=== PATIENT | male | born 1960 | race Caucasian/White ===

== ENCOUNTER → 2018-06-13 02:15 | Outpatient (CLI) | payer OTHER, SELFPAY ==
--- NOTE | 2018-06-13 14:00 | MERGE_ITS ---
*[facility]* *[facility]* [address] [place] [address] Date of study: 06/13/2018 Transthoracic Echocardiography M-mode, complete 2D, complete spectral Doppler, and color Doppler *STUDY CONCLUSIONS* Summary: 1. Left ventricle: The cavity size was normal. Wall thickness was increased in a pattern of mild LVH. Systolic function was at the lower limits of normal. The estimated ejection fraction was 50-55%. Wall motion was normal; there were no regional wall motion abnormalities. 2. Right ventricle: The cavity size was dilated. Systolic function was normal. 3. Left atrium: The atrium was mildly dilated. 4. Mitral valve: There was mild regurgitation. 5. Aortic valve: Trileaflet; mildly thickened leaflets. Valve mobility was mildly restricted. Transvalvular velocity was increased. There was mild stenosis. There was moderate to severe regurgitation. Peak velocity (S): 2.5m/sec. VTI ratio of LVOT to aortic valve: 0.61. 6. Aortic root: The aortic root was moderately dilated (45 mm). 7. Ascending aorta: The ascending aorta was mildly dilated (41 mm). 8. Pulmonic valve: Transvalvular velocity was increased. The findings are consistent with mild stenosis (likely subpulmonic stenosis). Mean gradient 13 mmHg. 9. Inferior vena cava: The vessel was patent and normal in size. The respirophasic diameter changes were in the normal range (greater than or equal to 50%), consistent with normal central venous pressure. *PATIENT PRESENTATION* Height: 175.3cm ((69in) ) S/D Pressure: 127 / 76 Weight: 91.6kg ((201.6lb) ) BSA: 2.14m^2 Test start time: 02:10 PM. Test stop time: 02:30 PM. 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 This study was interpreted by [facility]. Pertinent images and digital data are archived for permanent storage and are available for subsequent review. Comparison was made to the study of 05/11/2014. Study status: Routine. Transthoracic echocardiography. M-mode, complete 2D, complete spectral Doppler, and color Doppler. A Transthoracic Echocardiogram was performed. Scanning was performed from the parasternal, apical, subcostal, and suprasternal notch acoustic windows. Images were obtained using an [id number] cardiac ultrasound machine. Image quality was adequate. Study completion: The patient tolerated the procedure well. There were no complications. History: PMH: Congenital heart disease. h/o VSD with some increasing chest pressure. *CARDIAC ANATOMY* Left ventricle: The cavity size was normal. Wall thickness was increased in a pattern of mild LVH. Systolic function was at the lower limits of normal. The estimated ejection fraction was 50-55%. Wall motion was normal; there were no regional wall motion abnormalities. Findings consistent with diastolic dysfunction. There was no evidence of elevated ventricular filling pressure by Doppler parameters. Aortic valve: Trileaflet; mildly thickened leaflets. Valve mobility was mildly restricted. Doppler: Transvalvular velocity was increased. There was mild stenosis. There was moderate to severe regurgitation. VTI ratio of LVOT to aortic valve: 0.61. Valve area (VTI): 3cm^2. Indexed valve area (VTI): 1.4cm^2/m^2. Peak velocity ratio of LVOT to aortic valve: 0.52. Valve area (Vmax): 2.6cm^2. Indexed valve area (Vmax): 1.2cm^2/m^2. Mean velocity ratio of LVOT to aortic valve: 0.57. Valve area (Vmean): 2.9cm^2. Indexed valve area (Vmean): 1.3cm^2/m^2. Mean gradient (S): 10.4mm Hg. Peak gradient (S): 25mm Hg. Aorta: Aortic root: The aortic root was moderately dilated (45 mm). Ascending aorta: The ascending aorta was mildly dilated (41 mm). Mitral valve: Structurally normal valve. Mobility was not restricted. Doppler: Transvalvular velocity was within the normal range. There was no evidence for stenosis. There was mild regurgitation. Valve area by pressure half-time: 4.6cm^2. Indexed valve area by pressure half-time: 2.1cm^2/m^2. Peak gradient (D): 3.6mm Hg. Left atrium: The atrium was mildly dilated. Right ventricle: The cavity size was dilated. Systolic function was normal. Pulmonic valve: The pulmonary valve appears to be grossly normal. Doppler: Transvalvular velocity was increased. The findings are consistent with mild stenosis (likely subpulmonic stenosis). Mean gradient 13 mmHg. There was mild regurgitation. Peak gradient (S): 19.2mm Hg. Tricuspid valve: Structurally normal valve. Doppler: Transvalvular velocity was within the normal range. There was no evidence for stenosis. There was mild regurgitation. Pulmonary artery: The main pulmonary artery was normal-sized. Pulmonary systolic pressure was in the range of 30mm Hg to 35mm Hg. Right atrium: The atrium was dilated. Pericardium: There was no significant pericardial effusion. Systemic veins: Inferior vena cava: Well visualized. The vessel was patent and normal in size. The respirophasic diameter changes were in the normal range (greater than or equal to 50%), consistent with normal central venous pressure. Baseline ECG: Bradycardia. Measurements Left ventricle Value Reference LV ID, ED, PLAX 5.1 cm 3.5 - 6.0 LV ID, ES, PLAX 3.6 cm 2.1 - 4.0 LV PW thickness, ED, PLAX 1.3 cm LV end-diastolic volume, 1-p A2C 98 ml LV ejection fraction, 1-p A2C 52 % LV end-diastolic volume, 1-p A4C 133 ml LV ejection fraction, 1-p A4C 47 % LV e', lateral 0.106 m/sec LV E/e', lateral 9 LV e', medial 0.055 m/sec LV E/e', medial 17 LV e', average 0.081 m/sec LV E/e', average 12 Ventricular septum Value Reference IVS thickness, ED, PLAX 1.2 cm LVOT Value Reference LVOT ID, A-P 2.5 cm LVOT area 5 cm^2 LVOT peak velocity, S 1.31 m/sec LVOT mean velocity, S 0.83 m/sec LVOT VTI, S 31.4 cm LVOT peak gradient, S 6.9 mm Hg LVOT mean gradient, S 3.4 mm Hg Stroke volume (SV), LVOT DP 157 ml Stroke index (SV/bsa), LVOT DP 73 ml/m^2 Aortic valve Value Reference Aortic valve peak velocity, S 2.5 m/sec Aortic valve mean velocity, S 1.46 m/sec Aortic valve VTI, S 51.4 cm Aortic mean gradient, S 10.4 mm Hg Aortic peak gradient, S 25 mm Hg VTI ratio, LVOT/AV 0.61 Aortic valve area, VTI 3 cm^2 Velocity ratio, peak, LVOT/AV 0.52 Aortic valve area, peak velocity 2.6 cm^2 Velocity ratio, mean, LVOT/AV 0.57 Aortic valve area, mean velocity 2.9 cm^2 Aortic valve area/bsa, mean velocity 1.3 cm^2/m^2 Aortic regurg deceleration 255 cm/s^2 Aortic regurg pressure half-time 514 ms Aorta Value Reference Ascending aorta ID, A-P, S 4.1 cm RVOT Value Reference RVOT VTI, S 41.8 cm Left atrium Value Reference LA ID, A-P, ES 5.0 cm LA ID/bsa, A-P (H) 2.3 cm/m^2 <=2.2 LA area, ES, A4C 22.7 cm^2 8.8 - 23.4 LA area, ES, A2C 20 cm^2 LA volume/bsa, ES, 1-p A4C 37 ml/m^2 LA volume, ES, 2-p 65 ml LA volume/bsa, ES, 2-p 31 ml/m^2 Mitral valve Value Reference Mitral E-wave peak velocity 0.95 m/sec Mitral A-wave peak velocity 0.81 m/sec Mitral deceleration time 166 ms 150 - 230 Mitral pressure half-time 48 ms Mitral peak gradient, D 3.6 mm Hg Mitral E/A ratio, peak 1.18 Mitral valve area, PHT, DP 4.6 cm^2 Pulmonary veins Value Reference Pulmonary vein peak velocity, S 0.4 m/sec Pulmonary vein peak velocity, D 0.47 m/sec Pulmonary vein velocity ratio, peak, 0.86 S/D Pulmonary vein A-wave reversal peak 0.29 m/sec velocity Tricuspid valve Value Reference Tricuspid regurg peak velocity 2.8 m/sec Tricuspid peak RV-RA gradient 30.3 mm Hg Right atrium Value Reference RA area, ES, A4C (H) 20.5 cm^2 8.3 - 19.5 Pulmonic valve Value Reference Pulmonic peak gradient, S 19.2 mm Hg Legend: (L) and (H) mary beth values outside specified reference range. I have personally reviewed the images and have reviewed and edited the reported findings. Electronically signed by Stephen Pacheco 06/16/2018 09:46
== END ==
PROVIDERS: PCP Family Medicine; Visit Provider Family Medicine
DX: R07.89 Other chest pain (principal); I08.0 Rheumatic disorders of both mitral and aortic valves; I51.7 Cardiomegaly; Q24.9 Congenital malformation of heart, unspecified
CPT/HCPCS: 93306

== ENCOUNTER 2019-12-29 15:21 | Outpatient (REF) | payer BC, SELFPAY ==
[2019-12-29 19:55] LABS: CREATININE 1.17 mg/dL (0.70-1.30); Calculated LDL 135 mg/dL (<100); Cholesterol 200 mg/dL (<200); HDL Cholesterol 31 mg/dL (40-60); TSH (W/Ref FT4) 6.96 uIU/mL (0.36-3.74); Triglyceride 171 mg/dL (<150)
[2019-12-29 20:15] LABS: Hemoglobin A1C 5.5 % (3.8-5.6)
[2019-12-29 20:36] LABS: FREE T4 0.91 ng/dL (0.76-1.46)
== END 2019-12-29 15:41 ==
LOC: NCHCN 15:21
PROVIDERS: PCP Family Medicine; Visit Provider Family Medicine
DX: E03.9 Hypothyroidism, unspecified (principal); Z00.00 Encounter for general adult medical examination without abnormal findings; R39.89 Other symptoms and signs involving the genitourinary system; Q24.9 Congenital malformation of heart, unspecified
CPT/HCPCS: 80061; 82565; 83036; 84439; 84443

== ENCOUNTER 2020-04-07 01:53 | Outpatient (CLI) | payer BC, SELFPAY ==
--- NOTE | 2020-04-07 12:35 | DI.US_ITS ---
APPROVED REPORT EXAM: Comprehensive 2D, Doppler, and color-flow Echocardiogram Patient Location: Out-Patient Configuration Manager: Loreta Macias RDCS (AE) Other Information Study Quality: Good Conclusion Left Ventricle : The left ventricle is normal size. The left ventricular systolic function is normal. The left ventricular ejection fraction is within the normal range. There is normal left ventricular wall thickness. There is normal LV segmental wall motion. Function is indeterminate. LVEF is 50%. No ventricular septal defect. Mild septal thickening status post ventricular septal defect repair. Right Ventricle : The right ventricle is normal size. The right ventricular systolic function is norm al. The RVSP is 22.5 mmHg. Atria : The left atrium size is normal. The right atrium size is normal. Aortic Valve : Aortic valve is trileaflet. There is no aortic valvular stenosis. Moderate to severe a ortic regurgitation Mitral Valve : The mitral valve is normal in structure. No evidence of mitral valve stenosis. Mild mi tral regurgitation. Tricuspid Valve : The tricuspid valve is normal in structure. There is no tricuspid valve stenosis. M ild tricuspid regurgitation. Pulmonic Valve : The pulmonic valve is grossly normal in structure and function. Trace to mild pulmon ic regurgitation. Mild pulmonic stenosis (Mean gradient 14mmHg). Great Vessels : Aortic root is moderately dilated. The ascending aorta is moderately dilated (4cm) Ao rtic arch is normal in caliber. IVC is normal in size and collapses >50% with inspiration. Compared to echocardiogram from 06/13/2018: There is no significant change. Wall motion Left Ventricle The left ventricle is normal size. The left ventricular systolic function is normal. The left ventric ular ejection fraction is within the normal range. There is normal left ventricular wall thickness. T here is normal LV segmental wall motion. Function is indeterminate. No ventricular septal defect. Mil d septal thickening status post ventricular septal defect repair. LVEF is 50%. Right Ventricle The right ventricle is normal size. The right ventricular systolic function is normal. The RVSP is 22 .5 mmHg. Atria The left atrium size is normal. The right atrium size is normal. The interatrial septum is intact wit h no evidence for an atrial septal defect. Aortic Valve Aortic valve is trileaflet. There is no aortic valvular stenosis. Moderate to severe aortic regurgita tion Mitral Valve The mitral valve is normal in structure. No evidence of mitral valve stenosis. Mild mitral regurgitat ion. Tricuspid Valve The tricuspid valve is normal in structure. There is no tricuspid valve stenosis. Mild tricuspid regu rgitation. Pulmonic Valve The pulmonic valve is grossly normal in structure and function. Mild pulmonic stenosis (Mean gradient 14mmHg). Trace to mild pulmonic regurgitation. Great Vessels Aortic root is moderately dilated. The ascending aorta is moderately dilated (4cm) Aortic arch is nor mal in caliber. IVC is normal in size and collapses >50% with inspiration. Pericardium There is no pericardial effusion. There is no pleural effusion. 2D Dimensions IVSD d PLAX 1.05 cm M: 0.6-1.2 LV Vol A2C d MOD 106.3 mL LVPW d PLAX 1.03 cm M: 0.6 - 1.2 LV Vol A4C d MOD 105.5 mL LVID d PLAX 5.27 cm M: 4.2 - 5.8 LA vol/ BSA A2C s A-L 16.0 mL/m2 LVDs 3.60 cm M: 2.5 - 4.0 LA vol/ BSA A4C s A-L 15.4 mL/m2 Ao Root d 4.10 cm M: 3.1 - 3.7 LA Vol/ BSA Biplane s A-L 16.5 mL/m2 RA Area A4C 19.76 cm2 LA Area A4C s MOD 13.87 cm2 RA Vol/ BSA A4C s A-L 30.6 mL/m2 LA Area A2C s MOD 13.41 cm2 Ao Asc Diam d 4.03 cm M: 2.6 - 3.4 LV EF A4C MOD 50.2 % LV EF Teichholz 59.3 % LV EF A2C MOD 51.6 % LVEF (Rincon's) 48.92 % M: 52 - 72 LV EF Biplane MOD 48.9 % LV Volume 78.54 mL M: 62 - 150 SV 52.12 mL LV Volume Index 50.01 mL/m2 M: 34 - 74 SV Index 24.72 mL/m2 LV Vol Biplane MOD 106.6 mL FS 31.65 % M-Mode TAPSE 1.83 cm (M/F) >1.7 LV Diastology MV E' medial 0.046 (>0.07 m/s) E/A Ratio 1.3 LV E/e MED 19.35 (<14) MV E Vmax 0.88 (0.4-1.3 m/s) MV E' lateral 0.081 (>0.1 m/s) MV A Vmax 0.70 (0.4-1.3 m/s) LV E/e LAT 10.95 (<14) MV E/A Ratio 1.19 MV E/E' medial 19.39 MV E/E' lateral 10.97 Aortic Valve LVOT Vmax 1.31 m/s AR DT 3066 msec LVOT Mean Anson. 0.80 m/s AR PHT 889 msec LVOT Peak Grad 6.9 mmHg LVOT Mean Grad 3.2 mmHg LVOT VTI 0.294 m AoV Vmax 2.21 m/s Velocity Ratio 0.59 AoV Mean Anson. 1.41 m/s AoV Peak Grad 19.5 mmHg AoV Mean Grad 9.3 mmHg AoV VTI 0.443 m Vena Contraca 0.80 cm Mitral Valve MV DT 218 (160-240 msec) MV PHT 63 msec MV Area PHT 3.49 cm2 Pulmonary Valve PV Vmax 2.37 (0.5-1.5 m/s) RVOT Peak Gr. 3.11 mmHg PV Peak Grad 22.5 mmHg RVOT Mean Gr. 1.90 mmHg PV Mean Grad 14.3 mmHg RVOT Diam s 2.65 cm (M/F) 2.1-3.5 PV VTI 0.579 m RVOT VTI 0.232 m PV SV 320.0 mL RVOT Vmax 0.88 m/s Tricuspid Valve TR Peak Grad 19.5 mmHg TR Vmax 2.21 m/s RA Pressure 3.00 mmHg RVSP (TR) 22.5 mmHg
== END 2020-04-07 02:13 ==
PROVIDERS: PCP Family Medicine; Visit Provider Family Medicine
DX: I35.1 Nonrheumatic aortic (valve) insufficiency (principal); I37.0 Nonrheumatic pulmonary valve stenosis; I77.819 Aortic ectasia, unspecified site
CPT/HCPCS: 93306

== ENCOUNTER 2021-01-02 18:32 | Outpatient (REF) | payer BC, SELFPAY ==
[2021-01-02 18:56] LABS: Calculated LDL 93 mg/dL (<100); Cholesterol 164 mg/dL (<200); HDL Cholesterol 43 mg/dL (40-60); TSH (W/Ref FT4) 6.62 uIU/mL (0.36-3.74); Triglyceride 143 mg/dL (<150)
[2021-01-02 19:31] LABS: FREE T4 0.78 ng/dL (0.76-1.46)
== END 2021-01-02 18:33 | disposition home or self-care (01) ==
LOC: NCHCN 18:32
PROVIDERS: PCP Family Medicine; Visit Provider Family Medicine
DX: Z00.00 Encounter for general adult medical examination without abnormal findings (principal); E03.9 Hypothyroidism, unspecified; E78.5 Hyperlipidemia, unspecified
CPT/HCPCS: 80061; 84439; 84443

== ENCOUNTER 2021-04-04 01:25 | Outpatient (CLI) | payer BC, SELFPAY ==
--- NOTE | 2021-04-04 13:59 | DI.US_ITS ---
APPROVED REPORT EXAM: Comprehensive 2D, Doppler, and color-flow Echocardiogram Indications: Aortic valve disease, Aortic regurgitation Other Information Study Quality: Adequate Conclusion Normal left ventricular wall thickness and chamber size. Estimated ejection fraction is 55 to 60%. There are no segmental wall motion abnormalities Normal right ventricular size and systolic function Both atria are normal in size The aortic valve is sclerotic and trileaflet. There is no aortic stenosis. There is moderate aortic regurgitation The mitral leaflets are mildly thickened. There is mild mitral annular calcification. There is mild mitral regurgitation Normal tricuspid valve with mild regurgitation. Estimated right ventricular systolic pressure is 24 mmHg Normal pulmonic valve with trace regurgitation Mildly dilated ascending aorta and aortic root, 4.1 cm Wall motion Left Ventricle The left ventricle is normal size. The left ventricular systolic function is normal. The left ventric ular ejection fraction is within the normal range. There is normal left ventricular wall thickness. T here is normal LV segmental wall motion. There is no ventricular septal defect visualized. LVEF is 58 %. Right Ventricle The right ventricle is normal size. The right ventricular systolic function is normal. The RVSP is 23 .8mmHg. Atria The left atrium size is normal. The right atrium size is normal. The interatrial septum is intact wit h no evidence for an atrial septal defect. Aortic Valve The Aortic valve is sclerotic. Aortic valve is trileaflet. No hemodynamically significant valvular ao rtic stenosis. Moderate aortic regurgitation. Mitral Valve Mitral valve leaflets are mildly thickened. Mild mitral annular calcification. No evidence of mitral valve stenosis. Mild mitral regurgitation. Tricuspid Valve The tricuspid valve is normal in structure. There is no tricuspid valve stenosis. Mild tricuspid regu rgitation. Pulmonic Valve The pulmonary valve is normal in structure. There is no pulmonic valvular stenosis. Trace pulmonic re gurgitation. Great Vessels Aortic root is moderately dilated.4.11 cm The ascending aorta is moderately dilated.4.1 cm Aortic arc h is normal in caliber. IVC is normal in size and collapses >50% with inspiration. Pericardium There is no pericardial effusion. 2D Dimensions IVSD d PLAX 0.97 cm M: 0.6-1.2 LV Vol A2C d MOD 115.3 mL LVPW d PLAX 0.95 cm M: 0.6 - 1.2 LV Vol A4C d MOD 142.8 mL LVID d PLAX 5.24 cm M: 4.2 - 5.8 LA vol/ BSA A2C s A-L 16.4 mL/m2 LVDs 3.85 cm M: 2.5 - 4.0 LA vol/ BSA A4C s A-L 29.1 mL/m2 Ao Root d 4.11 cm M: 3.1 - 3.7 LA Vol/ BSA Biplane s A-L 22.7 mL/m2 RA Area A4C 19.73 cm2 LA Area A4C s MOD 19.44 cm2 RA Vol/ BSA A4C s A-L 30.3 mL/m2 LA Area A2C s MOD 14.00 cm2 Ao Asc Diam d 4.10 cm M: 2.6 - 3.4 LV EF A4C MOD 57.7 % LV EF Teichholz 50.6 % LV EF A2C MOD 58.9 % LVEF (Rincon's) 59.25 % M: 52 - 72 LV EF Biplane MOD 59.2 % LV Volume 97.91 mL M: 62 - 150 SV 78.17 mL LV Volume Index 47.52 mL/m2 M: 34 - 74 SV Index 37.85 mL/m2 LV Vol Biplane MOD 131.9 mL FS 25.95 % M-Mode TAPSE 1.76 cm (M/F) >1.7 LV Diastology MV E' medial 0.074 (>0.07 m/s) E/A Ratio 1.2 LV E/e MED 11.40 (<14) MV E Vmax 0.85 (0.4-1.3 m/s) MV E' lateral 0.088 (>0.1 m/s) MV A Vmax 0.70 (0.4-1.3 m/s) LV E/e LAT 9.60 (<14) MV E/A Ratio 1.19 MV E/E' medial 11.41 MV E/E' lateral 9.61 Aortic Valve LVOT Area 5.76 cm2 AoV Area Vmax 3.06 cm2 LVOT Vmax 1.13 m/s AoV Area/ BSA (Vmax) 1.48 cm2/m2 LVOT Mean Anson. 0.84 m/s FARHAD Mean Anson. 3.35 cm2 LVOT Peak Grad 5.1 mmHg FARHAD Mean Anson. Index 1.62 cm2/m2 LVOT Mean Grad 3.1 mmHg AR DT 2851 msec LVOT VTI 0.264 m AR PHT 827 msec LVOT Diam s 2.70 cm AoV Vmax 2.13 m/s Velocity Ratio 0.53 AoV Mean Anson. 1.44 m/s AoV Peak Grad 18.1 mmHg LVOT SV 152.08 mL AoV Mean Grad 9.8 mmHg AoV VTI 0.442 m AoV Area VTI 3.44 cm2 AoV Area/ BSA (VTI) 1.67 cm/m2 Mitral Valve MV DT 238 (160-240 msec) MV PHT 69 msec MV Area PHT 3.18 cm2 MV VTI 0.406 m MV Area VTI 3.74 (4.0-6.0 cm2) Pulmonary Valve PV Vmax 1.87 (0.5-1.5 m/s) RVOT Peak Gr. 11.49 mmHg PV Peak Grad 14.0 mmHg RVOT Mean Gr. 6.15 mmHg PV Mean Grad 6.6 mmHg RVOT VTI 0.412 m PV VTI 0.485 m RVOT Vmax 1.69 m/s Tricuspid Valve TR Peak Grad 20.7 mmHg TR Vmax 2.28 m/s RA Pressure 3.00 mmHg RVSP (TR) 23.8 mmHg
== END 2021-04-04 01:45 ==
PROVIDERS: PCP Family Medicine; Visit Provider Internal Medicine Cardiovascular Disease
DX: I35.1 Nonrheumatic aortic (valve) insufficiency (principal); I77.810 Thoracic aortic ectasia
CPT/HCPCS: 93306

== ENCOUNTER 2021-04-20 01:21 | Outpatient (CLI) | payer BC, SELFPAY ==
--- NOTE | 2021-04-20 06:45 | DI.NM_ITS ---
APPROVED REPORT Exam: Exercise Treadmill Patient Location: Out-Patient Room/Bed: Stress Nurse: Pura Helms RN Ordering Provider:BAY DUDLEY, Contact Number: [phone] BMI: 31.16 Baseline Rhythm: Sinus Bradycardia Comment: RBBB, Flipped T waves lead V2 Indications: Fatigue, nonrheumatic aortic insufficiency Medical History Medical History: Aortic regurgitation, pulmonary valve stenosis, murmur, hyperlipidemia, melanoma Cardiac Medications: atenolol, atorvastatin, omeprazole Allergies: NKA Cardiac Risk Factors: Hyperlipidemia, family hx, obesity Previous Cardiac Procedures: Ventricular septal defect repair Pretest Chest Pain Characteristics: None Exercise History: Sedentary Physical Disabilities: None Lung Sounds: Clear to auscultation, Clear to auscultation Heart Sounds: Murmur Stress Test Details Test: Exercise stress testing was performed using a Ji protocol. Nuclear Acquisition: Rest Tc-99m/Stress Tc-99m 1 day Rest Isotope: Tc-99m Sestamibi. Dose: 11.8 Date: 04/20/2021 Injection Time: 0845 Stress Isotope: Tc-99m Sestamibi. Dose: 37.0 Date: 04/20/2021 Injection Time: 1025 HR Resting HR Supine: 52 bpm Max Heart Rate (APMHR): 160.770043 bpm Resting HR Standin bpm Target HR (85% APMHR): 136.029579 bpm Max HR Achieved: 143 bpm % of APMHR: 89.38 Recovery HR: 71 bpm HR response to stress: Normal HR response to stress Comment: Atenolol not held BP Resting BP Supine: 166/78 mmHg Resting BP Standin/76 mmHg Max BP: 180/72 mmHg Recovery BP: 152/80 mmHg BP response to stress: Normal blood pressure response to stress. ECG Resting ECG: Sinus Bradycardia, RBBB Ectopy: Rare PVC Comment: Flipped T waves lead V2 Stress ECG: Sinus Tachycardia ST Change: Horizontal ST depression, Downsloping ST depression Lead(s): II, III, aVF, V3, V4, V5 Stage: [address] Deviation: 2 mm Arrhythmia: Occasional PAC, frequent multifocal PVCs Recovery ECG: Sinus Rhythm Recovery ST Change: Horizontal ST depression Lead(s): II Recovery ST Deviation: 1 mm Recovery Arrhythmia: Frequent multifocal PVCs Comment: T waves flipped in lead V1 during recovery Clinical Reason for Termination: Fatigue Stress Symptoms: Chest squeezing Exercise duration: 11 min00 sec Highest Stage Reached: Stage 4: 4.2 mph at 16% grade. Exercise capacity: 11.98 METs Rate Pressure Product: [id number] Stress ECG Conclusion 1. The patient exercised for 11 minutes (12 METS). Exercise was stopped due to fatigue and squeezing in chest. 2. The patient's EKG was abnormal during exercise with up to [address] depression. 3. The patient's blood pressure and heart rate augmented appropriately. Stress Test Summary STAGE Time (mins) Speed (mph) Grade (%) HR BP SYMPTOMS METS Supine 52 166/78 Standing 56 150/76 SpO2 96% 1 3 1.7 10 96 160/82 SpO2 96% 4.6 2 6 2.5 12 117 174/78 SpO2 96% 7 3 9 3.4 14 122 SpO2 96% 10.2 4 12 4.2 16 143 12.9 1 min recovery 94 180/72 SpO2 98%, mild chest squeezing L side 3 min recovery 77 168/74 symptoms resolved 6 min recovery 72 156/78 9 min recovery 71 152/80 During stage 4 of exercise, adjusted speed to 4.0mph and grade 10% in order to maintain exercise post nuclear injection. Through out exercise, patient denied symptoms. During recovery period, pt stated he felt mild chest squeezing to L side. Symptoms resolved by minute 3 of recovery. MPI Conclusion Ejection fraction was 57% with stress. There were no wall motion abnormalities. There was no evidence of ischemia on the imaging portion exam. This represents a normal SPECT stress test. Radiologist Interpretation Radiologist agrees with Real Estate Sales Associate's Interpretation. Radiologist Interpretation by: Reyna Braga MD Interpretation Date/Time: 04/20/2021 16:13:14
== END 2021-04-20 01:41 ==
PROVIDERS: PCP Family Medicine; Visit Provider Internal Medicine Cardiovascular Disease
DX: I35.1 Nonrheumatic aortic (valve) insufficiency (principal); R53.83 Other fatigue; Z82.49 Family history of ischemic heart disease and other diseases of the circulatory system; E78.5 Hyperlipidemia, unspecified; E66.9 Obesity, unspecified; Z68.31 Body mass index [BMI] 31.0-31.9, adult; I49.3 Ventricular premature depolarization
CPT/HCPCS: 78452; 93017

== ENCOUNTER 2022-01-03 15:06 | Outpatient (REF) | payer BC, SELFPAY ==
[2022-01-03 15:10] LABS: BUN 25 mg/dL (7-18); CREATININE 1.1 mg/dL (0.70-1.30); Calcium 8.9 mg/dL (8.5-10.1); Calculated LDL 103 mg/dL (<100); Chloride 105 mmol/L (98-107); Cholesterol 166 mg/dL (<200); Glucose 97 mg/dL (74-106); HDL Cholesterol 40 mg/dL (40-60); Magnesium 2.1 mg/dL (1.8-2.4); Potassium 4.1 mmol/L (3.5-5.1); Sodium 139 mmol/L (136-145); TSH (W/Ref FT4) 5.31 uIU/mL (0.36-3.74); Triglyceride 115 mg/dL (<150)
[2022-01-03 15:43] LABS: FREE T4 0.83 ng/dL (0.76-1.46)
== END 2022-01-03 15:07 | disposition home or self-care (01) ==
LOC: NCHCN 15:06
PROVIDERS: PCP Family Medicine; Visit Provider Family Medicine
DX: E03.9 Hypothyroidism, unspecified (principal); Q24.9 Congenital malformation of heart, unspecified; Z00.00 Encounter for general adult medical examination without abnormal findings; E78.5 Hyperlipidemia, unspecified
CPT/HCPCS: 80048; 80061; 83735; 84439; 84443

== ENCOUNTER → 2022-03-16 00:45 | Outpatient (CLI) | payer BC, SELFPAY ==
--- NOTE | 2022-03-16 06:45 | DI.US_ITS ---
APPROVED REPORT EXAM: Comprehensive 2D, Doppler, and color-flow Echocardiogram Patient Location: Out-Patient Motion Picture Photographer: Loreta Macias RDCS (AE) Indications: Aortic regurgitation Other Information Study Quality: Adequate Conclusion Normal left ventricular wall thickness and chamber size. Estimated ejection fraction is 60%. Wall m otion is normal Normal right ventricular size and systolic function Both atria are normal in size The aortic valve is sclerotic and trileaflet with mild to moderate regurgitation. No aortic stenosis Mild mitral annular calcification. Trace mitral regurgitation Normal tricuspid valve with trace regurgitation Dilated ascending aorta measuring 4.1 cm Wall motion Left Ventricle The left ventricle is normal size. The left ventricular systolic function is normal. The left ventric ular ejection fraction is within the normal range. There is normal left ventricular wall thickness. T here is normal LV segmental wall motion. There is no ventricular septal defect visualized. LVEF is 55 -60%. Right Ventricle The right ventricle is normal size. The right ventricular systolic function is normal. The RVSP is 29 .4 mmHg. Atria The left atrium size is normal. The right atrium size is normal. The interatrial septum is intact wit h no evidence for an atrial septal defect. Aortic Valve The Aortic valve is sclerotic. Aortic valve is trileaflet. There is no aortic valvular stenosis. Mild to moderate aortic regurgitation. Mitral Valve Mild mitral annular calcification. No evidence of mitral valve stenosis. Trace mitral regurgitation. Tricuspid Valve The tricuspid valve is normal in structure. There is no tricuspid valve stenosis. Trace tricuspid reg urgitation. Pulmonic Valve The pulmonary valve is normal in structure. There is no pulmonic valvular stenosis. Mild pulmonic reg urgitation. Great Vessels Aortic root is severely dilated. The ascending aorta is moderately dilated 4.1 cm Aortic arch is norm al in caliber. IVC is normal in size and collapses >50% with inspiration. Pericardium There is no pericardial effusion. 2D Dimensions IVSD d PLAX 1.00 cm M: 0.6-1.2 LV Vol A2C d MOD 137.7 mL LVPW d PLAX 1.01 cm M: 0.6 - 1.2 LV Vol A4C d MOD 182.9 mL LVID d PLAX 5.37 cm M: 4.2 - 5.8 LA vol/ BSA A2C s A-L 15.8 mL/m2 LVDs 3.70 cm M: 2.5 - 4.0 LA vol/ BSA A4C s A-L 31.7 mL/m2 Ao Root d 4.38 cm M: 3.1 - 3.7 LA Vol/ BSA Biplane s A-L 25.0 mL/m2 RA Area A4C 18.15 cm2 LA Area A4C s MOD 21.52 cm2 RA Vol/ BSA A4C s A-L 24.2 mL/m2 LA Area A2C s MOD 13.64 cm2 Ao Asc Diam d 4.10 cm M: 2.6 - 3.4 LV EF A4C MOD 55.1 % LV EF Teichholz 57.9 % LV EF A2C MOD 59.5 % LVEF (Rincon's) 59.16 % M: 52 - 72 LV EF Biplane MOD 59.2 % LV Volume 122.33 mL M: 62 - 150 SV 98.18 mL LV Volume Index 57.97 mL/m2 M: 34 - 74 SV Index 46.56 mL/m2 LV Vol Biplane MOD 166.0 mL FS 30.80 % M-Mode TAPSE 1.83 cm (M/F) >1.7 LV Diastology MV E' medial 0.056 (>0.07 m/s) E/A Ratio 1.1 LV E/e MED 14.75 (<14) MV E Vmax 0.83 (0.4-1.3 m/s) MV E' lateral 0.085 (>0.1 m/s) MV A Vmax 0.75 (0.4-1.3 m/s) LV E/e LAT 9.80 (<14) MV E/A Ratio 1.09 MV E/E' medial 14.78 MV E/E' lateral 9.81 Aortic Valve LVOT Area 4.53 cm2 AoV Area Vmax 2.66 cm2 LVOT Vmax 1.32 m/s AoV Area/ BSA (Vmax) 1.26 cm2/m2 LVOT Mean Anson. 0.90 m/s FARHAD Mean Anson. 2.90 cm2 LVOT Peak Grad 7.0 mmHg FARHAD Mean Anson. Index 1.38 cm2/m2 LVOT Mean Grad 3.8 mmHg AR DT 2222 msec LVOT VTI 0.310 m AR PHT 644 msec LVOT Diam s 2.40 cm AoV Vmax 2.25 m/s Velocity Ratio 0.58 AoV Mean Anson. 1.41 m/s AoV Peak Grad 20.2 mmHg LVOT SV 140.70 mL AoV Mean Grad 9.9 mmHg AoV VTI 0.432 m AoV Area VTI 3.26 cm2 AoV Area/ BSA (VTI) 1.54 cm/m2 Mitral Valve MV DT 247 (160-240 msec) MV PHT 72 msec MV Area PHT 3.07 cm2 Pulmonary Valve PV Vmax 1.78 (0.5-1.5 m/s) RVOT Peak Gr. 8.04 mmHg PV Peak Grad 12.7 mmHg RVOT Mean Gr. 3.65 mmHg PV Mean Grad 5.9 mmHg RVOT VTI 0.341 m PV VTI 0.444 m RVOT Vmax 1.42 m/s Tricuspid Valve TR Peak Grad 26.3 mmHg TR Vmax 2.57 m/s RA Pressure 3.00 mmHg RVSP (TR) 29.4 mmHg
== END ==
PROVIDERS: PCP Family Medicine; Visit Provider Internal Medicine Cardiovascular Disease
DX: I35.1 Nonrheumatic aortic (valve) insufficiency (principal)
CPT/HCPCS: 93306

== ENCOUNTER 2022-05-18 00:16 | Outpatient (CLI) | payer BC, SELFPAY ==
--- NOTE | 2022-05-18 07:00 | DI.MRI_ITS ---
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 COMPARISON: No exams were available for comparison FINDINGS: VENTRICLES AND EXTRA AXIAL SPACES: Normal in size and morphology for the patient's age. MIDLINE SHIFT: None. CEREBRAL PARENCHYMA: No focus of restricted diffusion to suggest acute infarct. No space-occupying le alin identified. On the T2 weighted images there is subtle areas of hyperintense signal seen in the r ight jose armando. These areas show hypointense signal on the T1 weighted images. HEMORRHAGE: None. BRAINSTEM/CEREBELLUM: Normal. CALVARIUM: Normal. VISUALIZED PARANASAL SINUSES/MASTOIDS:Clear. [place]: Normal flow void. PITUITARY GLAND: Unremarkable. OTHER FINDINGS: The optic chiasm and infundibulum are unremarkable. No mass is seen in the IAC's or cerebellopontine angles. Meckel's caves appear unremarkable. The optic nerves appear grossly unrema rkable. IMPRESSION: 1. Subtle areas of hyperintense T2 signal in the right jose armando. This is nonspecific. Postcontrast MRI is recommended for further evaluation. 2. No mass or abnormality is seen in the occipital lobes. 3. No mass or abnormality is seen in the ambient cisterns, interpeduncular fossa or cavernous sinus. DATA REPOSITORY:
== END 2022-05-18 00:36 ==
LOC: DI 00:16
PROVIDERS: PCP Family Medicine; Visit Provider Psychiatry & Neurology Neurology
DX: H53.19 Other subjective visual disturbances (principal)
CPT/HCPCS: 70551

== ENCOUNTER 2022-11-29 00:37 | Outpatient (CLI) | payer BC, SELFPAY ==
--- NOTE | 2022-11-29 07:20 | DI.MRI_ITS ---
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 COMPARISON: MR MR BRAIN WO from 05/18/2022 FINDINGS: CEREBRAL PARENCHYMA: There is no evidence of intracranial hemorrhage, mass effect, or shift of midline structures. There are no extra-axial fluid collections. Ventricles are not enlarged or shifted. There is no significant focal signal abnormality in the cerebellar hemispheres nor within the jose armando, m idbrain, and thalami. There is no abnormal signal abnormality in the periventricular white matter. There is no significant focal signal abnormality evident on diffusion imaging to suggest acute ischem ic event. PITUITARY GLAND: No mass nor parasellar abnormality. No obvious abnormality in the cavernous sinuses. FLOW VOIDS: The expected flow void are noted. No evidence of obvious aneurysm nor obvious vascular ma lformation. PARANASAL SINUSES: The visualized paranasal sinuses appear unremarkable. No obvious finding ORBITS: No obvious findings. IMPRESSION: No significant intracranial findings on this noninfused MRI scan of the brain. DATA REPOSITORY:
== END 2022-11-29 00:57 ==
LOC: DI 00:38
PROVIDERS: PCP Family Medicine; Visit Provider Psychiatry & Neurology Neurology
DX: H53.19 Other subjective visual disturbances (principal)
CPT/HCPCS: 70551

== ENCOUNTER 2023-01-29 17:26 | Outpatient (REF) | payer BC, SELFPAY ==
[2023-01-29 18:46] LABS: TSH (W/Ref FT4) 7.13 uIU/mL (0.36-3.74)
[2023-01-29 19:04] LABS: FREE T4 0.85 ng/dL (0.76-1.46)
[2023-01-29 19:19] LABS: CREATININE 1.1 mg/dL (0.70-1.30)
[2023-01-30 19:16] LABS: Thyroperoxidase Antibody 34 U/mL (<=60)
== END 2023-01-29 17:27 | disposition home or self-care (01) ==
LOC: NCHCN 17:26
PROVIDERS: PCP Family Medicine; Visit Provider Family Medicine
DX: E03.9 Hypothyroidism, unspecified (principal); I10 Essential (primary) hypertension
CPT/HCPCS: 82565; 84439; 84443; 86376

== ENCOUNTER 2023-04-02 13:17 | Outpatient (CLI) | payer BC, SELFPAY ==
--- NOTE | 2023-04-02 13:15 | RT.EKG_ITS ---
APPROVED REPORT Exam: Resting ECG Reason for Exam: cardiac evaluation Patient Location: O HR:60 bpm ECG Measurements Heart Rate 60 AXIS CO 191 P 51 QRSd 128 QRS 50 QT 432 T 212 QTc 432 Conclusion Sinus rhythm...normal P axis, V-rate 50- 99 Incomplete right bundle branch block LVH with secondary repolarization abnormality...multi-LVH criteria, abnrm ST-T
== END 2023-04-02 13:18 | disposition home or self-care (01) ==
LOC: DI.CARD 13:17
PROVIDERS: PCP Family Medicine; Visit Provider Internal Medicine Cardiovascular Disease
DX: I35.1 Nonrheumatic aortic (valve) insufficiency (principal); I77.810 Thoracic aortic ectasia; Z86.79 Personal history of other diseases of the circulatory system; Z87.74 Personal history of (corrected) congenital malformations of heart and circulatory system; Z13.6 Encounter for screening for cardiovascular disorders
CPT/HCPCS: 93010

== ENCOUNTER 2024-01-09 19:28 | Outpatient (CLI) | payer BC, SELFPAY ==
--- NOTE | 2024-01-09 19:15 | RT.EKG_ITS ---
APPROVED REPORT Exam: Resting ECG Reason for Exam: chest discomfort Patient Location: O HR:50 bpm ECG Measurements Heart Rate 50 AXIS DC 220 P 59 QRSd 132 QRS 56 QT 443 T 232 QTc 404 Conclusion Sinus rhythm...normal P axis, V-rate 50- 99 Prolonged DC interval...DC >220, V-rate 50- 90 Probable left atrial enlargement...P >50mS, <-0.10mV V1 IVCD, consider atypical RBBB...QRSd>120mS, terminal axis(90,270) LVH with IVCD and secondary repol abnrm...multi-criteria, wQRSd, abnr ST-T
== END 2024-01-09 19:29 | disposition home or self-care (01) ==
LOC: DI.CM 19:29
PROVIDERS: PCP Family Medicine; Visit Provider Physician Assistant
DX: R07.89 Other chest pain (principal)
CPT/HCPCS: 93010

== ENCOUNTER 2024-01-21 17:24 | Outpatient (REF) | payer BC, SELFPAY ==
[2024-01-21 19:32] LABS: HGB 14.9 g/dL (13.5-17.5)
[2024-01-21 19:59] LABS: Hemoglobin A1C 5.4 % (<5.7)
[2024-01-21 20:00] LABS: ALT 44 U/L (16-63); AST 27 U/L (15-37); Albumin 4.1 g/dL (3.4-5.0); Alkaline Phosphatase 79 U/L (46-116); Anion Gap 11.9 mmol/L (3-11); BUN 28 mg/dL (7-18); Bilirubin, Total 1.6 mg/dL (0.2-1.0); CO2 23.1 mmol/L (21.0-32.0); Calcium 8.8 mg/dL (8.5-10.1); Chloride 105 mmol/L (98-107); Estimated GFR 84.57 (mL/min/1.73m2); Glucose 85 mg/dL (74-106); Potassium 3.9 mmol/L (3.5-5.1); Sodium 140 mmol/L (136-145); Total Protein 7.2 g/dL (6.4-8.2)
[2024-01-23 10:11] LABS: HIV-1/2 Ag & Ab Screen Negative (Negative)
== END 2024-01-21 17:25 | disposition home or self-care (01) ==
LOC: NCHCN 17:24
PROVIDERS: PCP Family Medicine; Visit Provider Family Medicine
DX: Z00.00 Encounter for general adult medical examination without abnormal findings (principal); I10 Essential (primary) hypertension; R06.09 Other forms of dyspnea; Z11.4 Encounter for screening for human immunodeficiency virus [HIV]; Z13.1 Encounter for screening for diabetes mellitus
CPT/HCPCS: 80053; 87389; 83036; 85018

== ENCOUNTER → 2024-02-10 01:05 | Outpatient (CLI) | payer BC, SELFPAY ==
--- NOTE | 2024-02-10 07:00 | DI.NM_ITS ---
APPROVED REPORT Exam: Pharmacologic Patient Location: Out-Patient Room/Bed: Stress Nurse: Ricardo Swift, RN and Bharti Jeffrey RN Ordering Provider:JAIRO VILLA, Contact Number: BMI: 31.89 Baseline Rhythm: Sinus Rhythm - diffuse T wave inversions Comment: Indications: Exertional angina Medical History Medical History: Mealnoma, GERD, HLD, HTN, ascending aortic dilation, aortic regurgitation, pulmonary valve stenosis Cardiac Medications: Aspirin, Atenolol, Atorvastatin, Omeprazole Allergies: NKA Cardiac Risk Factors: HTN, HLD Previous Cardiac Procedures: VSD closure Pretest Chest Pain Characteristics: None Exercise History: Indeterminate Physical Disabilities: None Lung Sounds: LCTA Heart Sounds: +murmur Stress Test Details Test: Pharmacologic stress was paired with low level exercise. Reason for pharmacologic stress test: resting t wave abnormalities, beta blocked. Rest Isotope: Tc-99m Sestamibi. Dose: 9.9 Date: 02/10/2024 Injection Time: 08:45 Stress Isotope: Tc-99m Sestamibi. Dose: 32.8 Date: 02/10/2024 Injection Time: 10:20 HR Resting HR Supine: 50 bpm Max Heart Rate (APMHR): 157.741793 bpm Resting HR Standin bpm Target HR (85% APMHR): 133.536168 bpm Max HR Achieved: 113 bpm % of APMHR: 71.97 Recovery HR: 71 bpm BP Resting BP Supine: 152/68 mmHg Resting BP Standin/82 mmHg Max BP: 172/80 mmHg Recovery BP: 172/80 mmHg ECG Resting ECG: Sinus Rhythm - resting T wave abnormalities/inversions Ectopy: PVC's Stress ECG: Sinus Tachycardia ST Change: Horizontal and downslopping ST depression Lead(s): Global, diffuse Stage: post lexiscan injection Maximum ST Deviation: 5 mm Arrhythmia: PVC's, couplets Recovery ECG: Sinus Rhythm Recovery ST Change: Horizontal and downslopping ST depression Lead(s): global, diffuse Recovery ST Deviation: 5 mm Recovery Arrhythmia: PVC's, couplets Patient to ER: Reason Why: Per - pt experiencing left sided chest pressure s/p Lexiscan injection w/ diffuse ST changes on EKG that were not resolving. presented to assess patient and recommended patie nt go to ER. Patient transferred to ER via wheelchair by Cecy Swift RN Clinical Stress Symptoms: Chest pain/pressure Angina Score: Non-Limiting Rate Pressure Product: [id number] Stress ECG Conclusion 1. Resting EKG showed minor ST-T abnormalities 2. Patient underwent testing using an combination of pharmacologic stress with regadenoson and low-le merry exercise 3. Peak heart rate achieved was 72% of predicted for age 4. There were symptoms consistent with angina 5. The electrocardiographic portion of the test showed prominent diffuse ST depression consistent wit h ischemia. EKG changes persisted for more than 10 minutes. 6. Sporadic PVCs were noted 7. Patient was transferred to the emergency room for further evaluation 8. Unclear if MPI report will be available Critical Notification Critical Value: Yes Physician Notified Date: 02/10/2024 Time: 10:39 Physician Name: Response Time: 10:42 Stress Test Summary STAGE HR BP SpO2 Symptoms NOTES Supine 50 152/68 Standing 57 148/82 1 min post Lexiscan injection 113 144/88 3 min post Lexiscan injection 76 142/82 6 min post Lexiscan injection 71 172/80 Patient had a walking Lexiscan test. Pt noted to have significant ekg changes s/p Lexiscan injection. Pt reporting left sided chest pressure 2-4/10. notified and came to assess patient. recommended patient go to the ER given symptoms and ekg changes. Report provided to June at the E R and patient transferred via wheelchair to ER for further cardiac work up. MPI Conclusion This is a resting scan only. It shows normal perfusion, no evidence of prior infarction Radiologist Interpretation Radiologist agrees with Millwright Helper's Interpretation. Radiologist Interpretation by: Charles Ramos MD Interpretation Date/Time: 02/12/2024 08:04:57
[2024-02-10] MEDS: Regadenoson 0.4 MG/5 ML SYR IVP (10:35)
== END ==
PROVIDERS: PCP Family Medicine; Visit Provider Internal Medicine Cardiovascular Disease
DX: I20.89 Other forms of angina pectoris (principal); I49.3 Ventricular premature depolarization
CPT/HCPCS: 78451; J2785

== ENCOUNTER 2024-02-10 10:47 | Inpatient (IN) | payer BC, SELFPAY ==
[2024-02-10] VITALS (112 sets, daily range): BP systolic 122–209; BP diastolic 39–109; PULSE 45–73; RESP 8–23; TEMP 36.6–36.7; O2SAT 92–99
--- NOTE | 2024-02-10 10:45 | RT.EKG_ITS ---
APPROVED REPORT Exam: Resting ECG Reason for Exam: Chest Pain Patient Location: E HR:69 bpm ECG Measurements Heart Rate 69 AXIS NM 194 P 61 QRSd 128 QRS 72 QT 389 T 208 QTc 418 Conclusion Sinus rhythm...normal P axis, V-rate 60- 99 Ventricular premature complex...V complex w/ short R-R interval Probable left atrial enlargement...P >50mS, <-0.10mV V1 Nonspecific intraventricular conduction delay...QRSd >115mS, not LBBB/RBBB Repol abnrm suggests ischemia, diffuse leads...ST-T neg, ant/lat/inf
--- NOTE | 2024-02-10 11:00 | DI.RAD_ITS ---
Exam(s) XR CHEST 2V PA LATERAL EXAM: XR CHEST 2V PA LATERAL CLINICAL HISTORY: chest pain. TECHNIQUE: 2D digital imaging was performed. COMPARISON: No exams were available for comparison FINDINGS: 2 views: Heart size is normal. The mediastinum is not widened. Lungs are clear. No infiltrates nor pleural effusions. IMPRESSION: No acute pulmonary findings. DATA REPOSITORY: RADIATION DOSE DELIVERED:
[2024-02-10 11:13] LABS: Abs Immature Grans 0.03 10^3/uL (0.0-0.06); Absolute Basophil Count 0.06 10^3/uL (0.0-0.2); Absolute Eosinophil Count 0.16 10^3/uL (0.0-0.7); Absolute Lymphocyte Count 3.47 10^3/uL (1.2-3.4); Absolute Monocyte Count 0.36 10^3/uL (0.1-0.8); Basophils % 0.8; Eosinophils % 2.1; HGB 16.2 g/dL (13.5-17.5); Immature Grans % 0.4; Lymphocytes % 45.8; MCH 31.7 pg (27.0-33.0); MCHC 35.2 % (32.0-36.0); MCV 90 fL (80-95); MPV 9.7 fL (8.0-11.0); Monocytes % 4.7; Neutrophils % 46.2; RBC 5.11 10^6/uL (4.36-5.78); RDW 12.7 % (11.8-14.1); RDW-SD 41.1 fL; WBC 7.58 10^3/uL (4.4-10.8)
[2024-02-10 11:14] LABS: Platelet Count 146 10^3/uL (130-400)
[2024-02-10] MEDS: Heparin in 0.45% NaCl 25,000 UNIT/250 ML BAG 10 UNIT IV (11:15)
[2024-02-10] MEDS: Aspirin 325 MG TAB PO (11:30)
[2024-02-10 12:11] LABS: ALT 54 U/L (16-63); AST 36 U/L (15-37); Albumin 4.2 g/dL (3.4-5.0); Alkaline Phosphatase 81 U/L (46-116); Anion Gap 10.9 mmol/L (3-11); BUN 20 mg/dL (7-18); Bilirubin, Total 1.4 mg/dL (0.2-1.0); CO2 23.1 mmol/L (21.0-32.0); CREATININE 1.1 mg/dL (0.70-1.30); Chloride 107 mmol/L (98-107); Estimated GFR 75.43 (mL/min/1.73m2); Glucose 98 mg/dL (74-106); Magnesium 2.1 mg/dL (1.8-2.4); Potassium 4.2 mmol/L (3.5-5.1); Sodium 141 mmol/L (136-145); Total Protein 7.8 g/dL (6.4-8.2); Troponin I < 50 ng/L (< or =60)
[2024-02-10] MEDS: nitroGLYcerin in D5W 50 MG/250 ML BTL IV ×2 (12:18→18:26)
--- NOTE | 2024-02-10 13:09 | ED.GENADUL_ITS ---
Discharge Plan Disposition Patient Disposition: Admit to [facility] Condition: Serious Discharge Details Clinical Impression: Positive cardiac stress test Primary Care Provider: Wolfgang Rolon ED Provider: Higinio Manuel Home Meds and New Rx's Prescriptions: No Action atenolol 25 mg tablet 25 mg PO DAILY omeprazole 20 mg capsule,delayed release(DR/EC) 20 mg PO DAILY atorvastatin 40 mg tablet 40 mg PO QHS aspirin [Adult Aspirin Regimen] 81 mg tablet,delayed release (DR/EC) 81 mg PO DAILY HPI General Mode of arrival: wheelchair . Date/Time Provider Initiated Documentation: 02/10/24 10:55 . Limitations to Documentation: no limitations . Information obtained by: patient . HPI Narrative: 63-year-old male with history of hyperlipidemia, aortic root dilatation, remote history of VSD repair, sent from cardiac clinic where he was starting pharmacologic stress test and developed chest pain with significant EKG changes after administration of regadenoson. On arrival chest pain has significantly improved and is now noted to be mild. He has no associated shortness of breath. Patient was having stress test today for 2 months of chest discomfort with exertional activity. Related Data Home Medications Medication Instructions Recorded Confirmed atenolol 25 mg tablet 25 mg PO DAILY 09/03/18 02/10/24 omeprazole 20 mg capsule,delayed 20 mg PO DAILY 09/03/18 02/10/24 release atorvastatin 40 mg tablet 40 mg PO QHS 04/13/20 02/10/24 aspirin 81 mg tablet,delayed 81 mg PO DAILY 01/14/24 02/10/24 release (Adult Aspirin Regimen) Allergies Allergy/AdvReac Type Severity Reaction Status Date / Time No Known Allergies Allergy Verified 01/14/24 09:57 General Stated Complaint: Chest Pain KELBY: 2 Review of Systems All systems reviewed & are unremarkable except as noted in HPI and below Constitutional Constitutional: Denies fever(s) Cardiovascular Cardiovascular: Reports as per HPI Exam Const General: cooperative and no acute distress HENMT Mouth: moist mucous membranes Eyes Conjunctivae: normal conjunctivae Sclera: normal sclerae Neck Neck: trachea midline and supple Resp Auscultation: clear to auscultation bilaterally, no rales, no rhonchi and no wheezes Cardio Rate: regular rate and not tachycardic Rhythm: regular rhythm Heart Sounds: no murmurs GI Palpation: soft, not firm, no guarding, no masses, not rigid and nontender Skin General skin exam: no rashes or lesions noted Neuro General: patient alert, patient awake and tone normal Extrem General: no calf tenderness and no edema Psych Appearance: grossly normal Mental Status: mental status grossly normal Course Vital Signs Vital signs: Vital Signs Respiratory Rate 18 02/10/24 10:54 Temperature 36.7 C 02/10/24 10:59 Temperature Source Temporal Artery Scan 02/10/24 10:59 Pulse 64 02/10/24 11:31 Pulse 66 02/10/24 11:31 Respiratory Rate 14 02/10/24 11:31 Respiratory Effort Normal, Non-Labored 02/10/24 11:01 Blood Pressure 193/73 H 02/10/24 11:31 Blood Pressure Mean 116 02/10/24 11:31 Blood Pressure Position Sitting 02/10/24 10:59 Pulse Oximetry 98 02/10/24 11:31 Oxygen Delivery Method Room Air 02/10/24 10:59 Oxygen Flow Rate 0 02/10/24 10:59 Pain Level 2 02/10/24 10:59 Lab/Test Results Lab/Test Results: Laboratory Tests Range/Units 02/10/24 02/10/24 11:00 11:18 WBC (4.4-10.8) 10^3/uL 7.58 RBC (4.36-5.78) 10^6/uL 5.11 Hgb (13.5-17.5) g/dL 16.2 Hct (40.0-50.0) % 46.0 MCV (80-95) fL 90 MCH (27.0-33.0) pg 31.7 MCHC (32.0-36.0) % 35.2 RDW (11.8-14.1) % 12.7 Plt Count (130-400) 10^3/uL 146 MPV (8.0-11.0) fL 9.7 Immature Gran % 0.4 Neutrophils % 46.2 Lymphocytes % 45.8 Monocytes % 4.7 Eosinophils % 2.1 Basophils % 0.8 Nucleated RBC % (0.0-0.3) % 0.0 Absolute Neutrophils (1.2-6.7) 10^3/uL 3.50 Absolute Lymphocytes (1.2-3.4) 10^3/uL 3.47 H Absolute Monocytes (0.1-0.8) 10^3/uL 0.36 Absolute Eosinophils (0.0-0.7) 10^3/uL 0.16 Absolute Basophils (0.0-0.2) 10^3/uL 0.06 Sodium (136-145) mmol/L 141 Potassium (3.5-5.1) mmol/L 4.2 Chloride (98-107) mmol/L 107 Carbon Dioxide (21.0-32.0) mmol/L 23.1 Anion Gap (3-11) mmol/L 10.9 BUN (7-18) mg/dL 20 H Creatinine (0.70-1.30) mg/dL 1.1 Est GFR (CKD-EPI 2020) (mL/min/1.73m2) 75.43 Glucose (74-106) mg/dL 98 Calcium (8.5-10.1) mg/dL 9.0 Magnesium (1.8-2.4) mg/dL 2.1 Total Bilirubin (0.2-1.0) mg/dL 1.4 H AST (15-37) U/L 36 ALT (16-63) U/L 54 Alkaline Phosphatase (46-116) U/L 81 Troponin I (< or =60) ng/L < 50 Total Protein (6.4-8.2) g/dL 7.8 Albumin (3.4-5.0) g/dL 4.2 Medical Decision Making 1313 -- 63-year-old male with history of hyperlipidemia, sent from cardiology clinic where he was undergoing pharmacologic stress test and received 0.4 mg of Regadenoson was symptomatic with chest pain and EKG changes including ST depressions inferior lateral. Patient arrives emerged from and now with minimal chest pain and continued EKG changes. Reviewed EKG from just prior to stress test that showed no significant ST depressions, EKG immediately following administration of pharmacologic agent were ST depressions and ectopy noted and then third EKG performed here in the emergency department. Please see report regarding this EKG, there are continued ST depressions noted inferior lateral. Chest x-ray reviewed and interpreted by radiology: Mediastinum is not widened. No acute pulmonary findings. Patient was given heparin bolus and infusion and full dose aspirin. Patient has been accepted by [facility] cardiology, Dr. Estrada as the accepting. Unfortunately there is no beds available today and will likely not have any available till tomorrow afternoon. They recommend hospitalizing until able to transfer and continuing supportive treatment. They do not recommend loading with Plavix at this time. Labs reviewed initial troponin negative. Plan to trend. 1432 -- I spoke with Dr. Wan who recommended discussion with [facility] cardiology. I spoke with [facility] cloth folder machine Dr. Wilkerson, discussed ED presentation course, he will be happy accept the patient in transfer but unfortunately they have no beds immediately available. He suspects bed availability likely tomorrow morning. Plan to hospitalize here until able to transfer. 1528 --I spoke with Dr. Wan, discussed ED course, he will admit the patient. Repeat EKG was reviewed and interpreted by me: Please report, sinus bradycardia, borderline prolonged UT interval of 226, ST depressions noted inferior lateral. Lab Data Lab results reviewed: Yes I reviewed the patient's lab results. Labs: Laboratory Tests Range/Units 02/10/24 02/10/24 11:00 11:18 WBC (4.4-10.8) 10^3/uL 7.58 RBC (4.36-5.78) 10^6/uL 5.11 Hgb (13.5-17.5) g/dL 16.2 Hct (40.0-50.0) % 46.0 MCV (80-95) fL 90 MCH (27.0-33.0) pg 31.7 MCHC (32.0-36.0) % 35.2 RDW (11.8-14.1) % 12.7 Plt Count (130-400) 10^3/uL 146 MPV (8.0-11.0) fL 9.7 Immature Gran % 0.4 Neutrophils % 46.2 Lymphocytes % 45.8 Monocytes % 4.7 Eosinophils % 2.1 Basophils % 0.8 Nucleated RBC % (0.0-0.3) % 0.0 Absolute Neutrophils (1.2-6.7) 10^3/uL 3.50 Absolute Lymphocytes (1.2-3.4) 10^3/uL 3.47 H Absolute Monocytes (0.1-0.8) 10^3/uL 0.36 Absolute Eosinophils (0.0-0.7) 10^3/uL 0.16 Absolute Basophils (0.0-0.2) 10^3/uL 0.06 Sodium (136-145) mmol/L 141 Potassium (3.5-5.1) mmol/L 4.2 Chloride (98-107) mmol/L 107 Carbon Dioxide (21.0-32.0) mmol/L 23.1 Anion Gap (3-11) mmol/L 10.9 BUN (7-18) mg/dL 20 H Creatinine (0.70-1.30) mg/dL 1.1 Est GFR (CKD-EPI 2020) (mL/min/1.73m2) 75.43 Glucose (74-106) mg/dL 98 Calcium (8.5-10.1) mg/dL 9.0 Magnesium (1.8-2.4) mg/dL 2.1 Total Bilirubin (0.2-1.0) mg/dL 1.4 H AST (15-37) U/L 36 ALT (16-63) U/L 54 Alkaline Phosphatase (46-116) U/L 81 Troponin I (< or =60) ng/L < 50 Total Protein (6.4-8.2) g/dL 7.8 Albumin (3.4-5.0) g/dL 4.2 Quality:[facility] Related Social Needs: No Data to Display Critical Care Time Critical Care Time Critical Care Time: Yes Total Critical Care Time: 45 Attestation: I spent 45 minutes addressing this patient's immediate life threats. Please see MDM section of note. This time was spent engaged in work directly related to the patient's care, exclusive of separate procedures, and failure to initiate these interventions would have likely resulted in clinically significant or life threatening deterioration in the patient's condition. PFSH All Active Problems Positive cardiac stress test (Acute) Angina concurrent with and due to arteriosclerosis of coronary artery (Acute) Oscillopsia (Acute) Ascending aorta dilation (Acute) Aortic root dilatation (Acute) Aortic regurgitation (Acute) Personal history of pulmonary valve stenosis (Acute) History of ventricular septal defect repair (Acute) Medical History Melanoma GERD (gastroesophageal reflux disease) Hyperlipidemia Hypertension Family hx of melanoma Surgical History S/P VSD closure Family History Father Hyperlipidemia Hypertension Social History Smoking/Tobacco Use Status: Never Smoking risk assessment performed?: Yes Alcohol Intake: current Alcohol Intake frequency: 0-2 drinks per day Drug use: Never Household members: spouse Housing: house Number of Children: 2 current occupation: [place] prec[employer] Do you feel safe at home: Yes Do you feel safe in your relationship?: Yes
[2024-02-10] MEDS: Metoprolol 25 MG TAB PO (13:23)
--- NOTE | 2024-02-10 15:00 | RT.EKG_ITS ---
APPROVED REPORT Exam: Resting ECG Reason for Exam: ekg changes Patient Location: E HR:48 bpm ECG Measurements Heart Rate 48 AXIS SC 226 P 44 QRSd 125 QRS 58 QT 447 T 135 QTc 399 Conclusion Sinus bradycardia...rate< 60 Borderline prolonged SC interval...SC >222, V-rate 30- 49 LVH with IVCD and secondary repol abnrm...multi-criteria, wQRSd, abnr ST-T st dep inf laterally
--- NOTE | 2024-02-10 15:15 | HPE_ITS ---
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 Hooker about using DAPT such as Plavix or Prasugel and she recommended against using this along w/aspirin pending his heart cath results. metoprolol was given while in the ED but despite this his BP remains elevated in the 170's to 180's therefore we will resume NTG drip. Echo was ordered by EFelicia provider and the nuclear monitoring technician is here to perform his echo. will continue to cycle his troponin. If he has further angina symptoms or dramatic jump in his troponin, then I will reach out to [facility] and [facility] [place] [place] to try to move him sooner. Plan of care discussed w/ patient and his . critical care time 45 minutes (2) Positive cardiac stress test: Status: Acute (3) Aortic regurgitation: Status: Acute Qualifiers: Cardiac valve disease etiology: nonrheumatic Qualified Code(s): I35.1 - Nonrheumatic aortic (valve) insufficiency (4) History of ventricular septal defect repair: Status: Acute (5) Hypertension: (6) Hyperlipidemia: (7) GERD (gastroesophageal reflux disease): History of Present Illness History of Present Illness Chief Complaint: chest pain Narrative: 63 yr old male w/ hx consistent w/ accelerating, unstable angina. 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 He had recent follow up w/ his informatica mdm developer and was sent for stress MPI today. His baseline EKG has LVH w/ strain pattern but today patient had GXT MPI when he developed angina during the injection of regadenoson and had significant ST depression and T wave inversion diffusely including inferior and lateral limb leads (I, II, III, aVF, aVL, V3-V6). Patient says that he had chest pain similar to when he exerts himself but it was not as bad. CP resolved in the ED w/ NTG. Patient is now free of any CP or dyspnea. However, EKG done in the ED demosntrated persistent diffuse ST depression and T wave inversion. He was given ASA and put on heparin drip. [facility] [place] [place] cards (Dr. Manuel spoke w/ an ROSANGELA w/ [facility] [place] cardiology) was called and they are willing to accept him tomorrow to service of Dr. Ambrosio Estrada; I did ask Dr. Manuel to reach out to [facility] because I am concerned that this patient has dynamic EKG changes and symptoms of unstable angina and would be better served being transferred today to a tertiary care center that has a labview programmer. He did call [facility] and spoke w/ Dr. Bolivar Pennington. He is also willing to take the patient but also [facility] will not have a bed until tomorrow. The hospitalist service was asked to admit the patient to [facility] to treat his unstable angina pending transfer to one of the tertiary care centers. PFSH All Active Problems Acute coronary syndrome (Acute) Positive cardiac stress test (Acute) Angina concurrent with and due to arteriosclerosis of coronary artery (Acute) Oscillopsia (Acute) Ascending aorta dilation (Acute) Aortic root dilatation (Acute) Aortic regurgitation (Acute) Personal history of pulmonary valve stenosis (Acute) History of ventricular septal defect repair (Acute) Medical History Melanoma GERD (gastroesophageal reflux disease) Hyperlipidemia Hypertension Family hx of melanoma Surgical History S/P VSD closure Family History Father Hyperlipidemia Hypertension Social History Smoking/Tobacco Use Status: Never Smoking risk assessment performed?: Yes Alcohol Intake: current Alcohol Intake frequency: 0-2 drinks per day Drug use: Never Household members: spouse Housing: house Number of Children: 2 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 Do you feel safe at home: Yes Do you feel safe in your relationship?: Yes Meds Allergies and Home Medications Allergies Allergy/AdvReac Type Severity Reaction Status Date / Time No Known Allergies Allergy Verified 01/14/24 09:57 Home Medications Medication Instructions Recorded Confirmed Type atenolol 25 mg tablet 25 mg PO DAILY 09/03/18 02/10/24 History omeprazole 20 mg capsule,delayed 20 mg PO DAILY 09/03/18 02/10/24 History release atorvastatin 40 mg tablet 40 mg PO QHS 04/13/20 02/10/24 History aspirin 81 mg tablet,delayed 81 mg PO DAILY 01/14/24 02/10/24 History release (Adult Aspirin Regimen) Exam Narrative Exam Narrative: Alert and oriented x4 HEENT: Atraumatic normocephalic, pupils equally round reactive to light and accommodation, extraocular motion intact, normal oropharynx Neck: Supple, nontender, without thyromegaly or lymphadenopathy or JVD. carotid w/out bruits Lungs: Clear to auscultation and percussion Heart: Regular rate and rhythm w/ grade 3/6 diastolic decrescendo murmur Abdomen: Nondistended, normal bowel sounds, nontender to palpation or percussion, no organomegaly, no bruits, no palpable masses Genitalia and rectal exam: Deferred Extremities: Normal range of motion with normal strength. No peripheral cyanosis or edema. Normal pulses Neurologic: Cranial nerves grossly normal, normal motor and sensory exam Results Imaging Chest x-ray: report reviewed and image reviewed EKG: report reviewed and image reviewed Labs 02/10/24 11:00 02/10/24 11:18 Labs: Laboratory Results - last 24 hr 02/10/24 02/10/24 11:00 11:18 WBC 7.58 RBC 5.11 Hgb 16.2 Hct 46.0 MCV 90 MCH 31.7 MCHC 35.2 RDW 12.7 Plt Count 146 MPV 9.7 Immature Gran % 0.4 Neutrophils % 46.2 Lymphocytes % 45.8 Monocytes % 4.7 Eosinophils % 2.1 Basophils % 0.8 Nucleated RBC % 0.0 Absolute Neutrophils 3.50 Absolute Lymphocytes 3.47 H Absolute Monocytes 0.36 Absolute Eosinophils 0.16 Absolute Basophils 0.06 Sodium 141 Potassium 4.2 Chloride 107 Carbon Dioxide 23.1 Anion Gap 10.9 BUN 20 H Creatinine 1.1 Est GFR (CKD-EPI 2020) 75.43 Glucose 98 Calcium 9.0 Magnesium 2.1 Total Bilirubin 1.4 H AST 36 ALT 54 Alkaline Phosphatase 81 Troponin I < 50 Total Protein 7.8 Albumin 4.2 Last Vital Signs Temp 36.7 C 02/10/24 10:59 Pulse 64 02/10/24 11:31 Resp 14 02/10/24 11:31 BP 193/73 H 02/10/24 11:31 Pulse Ox 98 02/10/24 11:31 Time Spent Time spent with Patient: 40-54 minutes Time was spent: preparing to see the patient(eg.review tests), indepentently interpreting results, counseling the patient and care coordination
--- NOTE | 2024-02-10 15:23 | DI.US_ITS ---
APPROVED REPORT EXAM: Comprehensive 2D, Doppler, and color-flow Echocardiogram Patient Location: ER Room/Bed: 3 Human Resource Management Instructor: Loreta Macias RDCS (AE) Indications: Chest pain Other Information Study Quality: Fair. Technically limited study due to body habitus, exam done bedside ER. Conclusion Mild concentric left ventricular hypertrophy. Ejection fraction is 55%. There are no segmental wall motion abnormalities Right ventricle is grossly normal in size and function Both atria are normal in size Aortic valve is sclerotic. There is moderate aortic regurgitation. There is no hemodynamically sign ificant aortic stenosis Mild mitral annular calcification. Trace to mild mitral regurgitation Mild tricuspid and pulmonic regurgitation Dilated aortic root, 4.33 cm Wall motion Left Ventricle The left ventricle is normal size. The overall left ventricular systolic function appears normal. Mil d concentric left ventricular hypertrophy There is normal LV segmental wall motion. There is no ventr icular septal defect visualized. LVEF is 54%. Right Ventricle Right ventricle is grossly normal in size. Right ventricular systolic function is grossly normal. Atria The left atrium size is normal. The right atrium size is normal. The interatrial septum is intact wit h no evidence for an atrial septal defect. Aortic Valve Aortic valve is calcified. Number of aortic valve leaflets could not be assessed. No hemodynamically significant valvular aortic stenosis. Moderate aortic regurgitation. Mitral Valve Mild mitral annular calcification. No evidence of mitral valve stenosis. Trace to mild mitral regurgi tation. Tricuspid Valve The tricuspid valve is normal in structure. There is no tricuspid valve stenosis. Mild tricuspid regu rgitation. Unable to assess PA pressure. Pulmonic Valve The pulmonary valve is normal in structure. There is no pulmonic valvular stenosis. Mild pulmonic reg urgitation. Great Vessels Aortic root is moderately dilated. Ascending aorta is not well visualized. Aortic arch is normal in c aliber. IVC is normal in size and collapses >50% with inspiration. Pericardium There is no pericardial effusion. 2D Dimensions IVSD d PLAX 1.00 cm M: 0.6-1.2 Ao Root d 4.33 cm M: 3.1 - 3.7 LVPW d PLAX 1.02 cm M: 0.6 - 1.2 LVID d PLAX 5.10 cm M: 4.2 - 5.8 LVDs 3.71 cm M: 2.5 - 4.0 LV EF Teichholz 52.7 % FS 27.21 % LV EDV (Teich) 123.6 mL LV ESV (Teich) 58.5 mL Auto EF LV EDV A4C 371.9 mL LV EDV A2C 203.7 mL LV EDV BP 275.5 mL LV ESV A4C 173.9 mL LV ESV A2C 98.2 mL LV ESV BP 127.6 mL LVEF(%) A4C 53.2 % LVEF(%) A2C 51.8 % LVEF(%) BP 53.7 % LV SV A4C 198.0 ml LV SV A2C 105.5 ml LV SV BP 147.9 ml LV CO A4C 9.6 L/min LV CO A2C 5.3 L/min LV CO BP 7.4 L/min HR A4C 48.32 BPM HR A2C 50.27 BPM LV EDV Index (BP) LV Diastology MV E' medial 0.056 (>0.07 m/s) MV E Vmax 0.88 (0.4-1.3 m/s) MV E/E' MED 15.73 (<14) MV A Vmax 0.75 (0.4-1.3 m/s) MV E' lateral 0.087 (>0.1 m/s) E/A Ratio 1.2 MV E/E' LAT 10.11 (<14) MV E' Average 0.072 m/s MV E/E'(average) 12.31 Aortic Valve AoV Vmax 2.38 m/s LVOT Vmax 1.12 m/s AoV Peak Grad 55.2 mmHg LVOT Peak Grad 5.0 mmHg AoV Area (Vmax) 1.99 cm2 LVOT VTI 0.309 m AoV VTI 0.513 m LVOT Mean Grad 3.1 mmHg AoV Mean Anson. 1.50 m/s LVOT SV 130.39 mL AoV Mean Grad 10.9 mmHg LVOT Diam s 2.30 cm AoV Area (VTI) 2.54 cm2 AV Regurg Peak Gr. 87.65 mmHg Velocity Ratio 0.47 AR Decel Ray 1.7m/sec2 AR DT 2677 msec AR PHT 776 msec AR Vmax 4.68 m/s Mitral Valve MV DT 183 (160-240 msec) MV Vmax TIPS 0.94 m/s MV Mean Grad 1.2 (<2mmHg) MV VTI 0.445 m Pulmonary Valve PV Vmax 1.67 (0.5-1.5 m/s) RVOT Vmax 1.85 m/s PV Peak Grad 11.2 mmHg RVOT Peak Gr. 13.6 mmHg PV Mean Anson 1.19 m/s RVOT VTI 0.432 m PV Mean Grad 6.5 mmHg RVOT Mean Gr. 8.2 mmHg
[2024-02-10 17:07] LABS: Troponin I 1422 ng/L (< or =60)
[2024-02-10] MEDS: Pantoprazole 40 MG TABCR PO (17:30)
[2024-02-10 19:00] LABS: PTT Activated 60.8 sec (23.6-32.8)
[2024-02-10] MEDS: Atorvastatin 40 MG TAB 80 MG PO (20:34)
[2024-02-10] MEDS: Normal Saline Flush 10 ML SYR IVP (20:34)
[2024-02-10 21:03] LABS: Troponin I 2224 ng/L (< or =60)
--- NOTE | 2024-02-10 21:40 | W.PM.DS.N ---
Date of service: 02/10/24 Time of Service: 21:42 DS: Diagnosis Discharge Diagnosis (1) Acute coronary syndrome: Start date: 02/10/24 Status: Acute Asessment and Plan: This is a 63-year-old gentleman with positive stress test today with chest pain induced resolved by nitroglycerin. He is on nitro drip because of blood pressure and slow heart rate with metoprolol held or being given a lower dose. He is on heparin. Did receive aspirin but did not receive Plavix. He is now being transferred to [facility] cardiology service for cardiac catheterization. He has a significant history of atrial septal defect and aortic regurgitation. He has not had any recent cardiac catheterization being catheterized in the for evaluation of his ventral septal defect. (2) Positive cardiac stress test: Status: Acute Asessment and Plan: As above now being transferred on IV nitroglycerin and IV heparin to cardiology service for cardiac catheterization. He is pain-free. His troponins are trending upward now over 1999. (3) Aortic regurgitation: Status: Chronic Asessment and Plan: Chronic and stable. (4) History of ventricular septal defect repair: Status: Chronic Asessment and Plan: Chronic stable. (5) Hypertension: Asessment and Plan: Slightly elevated on nitroglycerin drip. (6) Hyperlipidemia: Asessment and Plan: On high-dose statin. (7) GERD (gastroesophageal reflux disease): Asessment and Plan: On PPI. Discharge Plan Disposition Specific Acute Inpt Facility: [facility] Condition: Fair Discharge Details Reason For Visit: acute coronary syndrome Admit Date/Time: 02/10/24 15:05 Admit Provider: Edilson Wan Attending Provider: Edilson Wan Primary Care Provider: Wolfgang Rolon [facility] Course Hospital Course: See ED notes and history and physical. Patient has been accepted to [facility] cardiology service under Dr. Ambrosio Estrada. He is chest pain-free on nitroglycerin infusion and heparin infusion having received loading dose of aspirin. He also is on high-dose atorvastatin. He is on low-dose metoprolol as tolerated but does have bradycardia. Blood pressure still elevated requiring glycerin drip. Physical exam is stable with patient lungs clear, heart with bradycardic rate and irregular rhythm as well as 4/6 pansystolic murmur with his atrial septal defect. He has no significant swelling of his lower extremities. He is comfortable and in no acute distress. Labs do show trending of troponins increasing gradually now at 2224 with initial troponin negative at less than 50 and second troponin 1422. He continues to have some ST segment depressions which are more severe with chest pain during his cardiac stress test. Current monitor shows sinus bradycardia. He did have slightly elevated total bilirubin but otherwise labs on CMP and CBC were normal. Patient is being transferred with full ACLS protocol via ambulance to [facility] cardiology service. He is stable. He is a full code. Home Meds and New Rx's Prescriptions: No Action atenolol 25 mg tablet 25 mg PO DAILY omeprazole 20 mg capsule,delayed release(DR/EC) 20 mg PO DAILY atorvastatin 40 mg tablet 40 mg PO QHS aspirin [Adult Aspirin Regimen] 81 mg tablet,delayed release (DR/EC) 81 mg PO DAILY Discharge Instructions Activity:: Bedrest with bathroom privileges Diet:: NPO Discharge Data Discharge Physician: Haris Sanchez DS: Summary Time Spent with Patient providing and/or coordinating discharge services: Greater than 30 minutes Status at Discharge Functional status at discharge: bed bound (With bathroom privileges on heparin and nitroglycerin infusion) Overall status at discharge: patient is not back to baseline Mental Status: mental status grossly normal Speech and Movement: speech and movement normal Mood: congruent mood Affect: normal affect Quality:SDOH Health Related Social Needs: No Data to Display Exam Narrative Exam Narrative: See H&P and hospital summary. Psych Mental Status: mental status grossly normal Speech and Movement: speech and movement normal Mood: congruent mood Affect: normal affect DS: Data Vitals/I&O Vitals and I&O: Vital Signs Temperature 36.6 C 02/10/24 20:19 Temperature Source Tympanic 02/10/24 20:19 Pulse 52 L 02/10/24 21:01 Pulse 56 L 02/10/24 21:01 Respiratory Rate 16 02/10/24 21:01 Respiratory Effort Normal, Non-Labored 02/10/24 20:19 Respiratory Depth Normal 02/10/24 16:18 Respiratory Pattern Normal 02/10/24 16:18 Blood Pressure 127/65 02/10/24 21:01 Blood Pressure Mean 83 02/10/24 21:01 Blood Pressure Position Sitting 02/10/24 20:19 Pulse Oximetry 94 02/10/24 21:01 Oxygen Delivery Method Room Air 02/10/24 20:19 Oxygen Flow Rate 0 02/10/24 20:19 Pain Level 0 02/10/24 20:19 Intake & Output 02/09/24 02/10/24 02/10/24 23:59 11:59 23:59 Intake Total 81.833 / 81.833 Balance 81.833 / 81.833 Weight 95.254 kg 95.25 kg Intake: IV 81.833 / 81.833 Data Completed and Pending Completed studies during hospitalization [Text1]: Echocardiogram with report pending Labs on day of discharge: Labs from last 24 hours 02/10/24 02/10/24 02/10/24 20:40 18:40 16:35 WBC RBC Hgb Hct MCV MCH MCHC RDW Plt Count MPV Immature Gran % Neutrophils % Lymphocytes % Monocytes % Eosinophils % Basophils % Nucleated RBC % Absolute Neutrophils Absolute Lymphocytes Absolute Monocytes Absolute Eosinophils Absolute Basophils APTT 60.8 H Sodium Potassium Chloride Carbon Dioxide Anion Gap BUN Creatinine Est GFR (CKD-EPI 2020) Glucose Calcium Magnesium Total Bilirubin AST ALT Alkaline Phosphatase Troponin I 2224 H* 1422 H* Total Protein Albumin 02/10/24 02/10/24 11:18 11:00 WBC 7.58 RBC 5.11 Hgb 16.2 Hct 46.0 MCV 90 MCH 31.7 MCHC 35.2 RDW 12.7 Plt Count 146 MPV 9.7 Immature Gran % 0.4 Neutrophils % 46.2 Lymphocytes % 45.8 Monocytes % 4.7 Eosinophils % 2.1 Basophils % 0.8 Nucleated RBC % 0.0 Absolute Neutrophils 3.50 Absolute Lymphocytes 3.47 H Absolute Monocytes 0.36 Absolute Eosinophils 0.16 Absolute Basophils 0.06 APTT Sodium 141 Potassium 4.2 Chloride 107 Carbon Dioxide 23.1 Anion Gap 10.9 BUN 20 H Creatinine 1.1 Est GFR (CKD-EPI 2020) 75.43 Glucose 98 Calcium 9.0 Magnesium 2.1 Total Bilirubin 1.4 H AST 36 ALT 54 Alkaline Phosphatase 81 Troponin I < 50 Total Protein 7.8 Albumin 4.2 PFSH All Active Problems Acute coronary syndrome (Acute) Positive cardiac stress test (Acute) Angina concurrent with and due to arteriosclerosis of coronary artery (Acute) Oscillopsia (Acute) Ascending aorta dilation (Acute) Aortic root dilatation (Acute) Aortic regurgitation (Chronic) Personal history of pulmonary valve stenosis (Acute) History of ventricular septal defect repair (Chronic) Medical History Melanoma GERD (gastroesophageal reflux disease) Hyperlipidemia Hypertension Family hx of melanoma Surgical History S/P VSD closure Family History Father Hyperlipidemia Hypertension Social History Smoking/Tobacco Use Status: Never Smoking risk assessment performed?: Yes Alcohol Intake: current Alcohol Intake frequency: 0-2 drinks per day Drug use: Never Household members: spouse Housing: house Number of Children: 2 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
== END 2024-02-10 23:00 | disposition short-term general hospital (02) | DRG 303 ==
LOC: ER 16:21 → ICU 16:28
PROVIDERS: Admitting Provider Internal Medicine; Emergency Provider Student in an Organized Health Care Education/Training Program; PCP Family Medicine; Visit Provider Internal Medicine
DX: I25.110 Atherosclerotic heart disease of native coronary artery with unstable angina pectoris; I77.810 Thoracic aortic ectasia; I35.1 Nonrheumatic aortic (valve) insufficiency; I10 Essential (primary) hypertension; R94.39 Abnormal result of other cardiovascular function study; E78.5 Hyperlipidemia, unspecified; K21.9 Gastro-esophageal reflux disease without esophagitis; Z79.899 Other long term (current) drug therapy; Z87.74 Personal history of (corrected) congenital malformations of heart and circulatory system
CPT/HCPCS: 00123; 36415; 80053; 93005; 96365; 96366; 99291; 71046; 83735; 84484; 85025; 85730; 93010; 93306; J1644; J2305

== ENCOUNTER 2024-02-20 12:56 | Outpatient (REF) | payer BC, SELFPAY ==
[2024-02-20 15:11] LABS: Abs Immature Grans 0.02 10^3/uL (0.0-0.06); Absolute Basophil Count 0.07 10^3/uL (0.0-0.2); Absolute Eosinophil Count 0.25 10^3/uL (0.0-0.7); Absolute Lymphocyte Count 2.15 10^3/uL (1.2-3.4); Absolute Monocyte Count 0.47 10^3/uL (0.1-0.8); Absolute Neutrophil Count 3.86 10^3/uL (1.2-6.7); Eosinophils % 3.7 %; HCT 43.2 % (40.0-50.0); HGB 15.5 g/dL (13.5-17.5); Immature Grans % 0.3 %; Lymphocytes % 31.5 %; MCH 31.7 pg (27.0-33.0); MCHC 35.9 % (32.0-36.0); MCV 88 fL (80-95); MPV 10.6 fL (8.0-11.0); Monocytes % 6.9 %; Neutrophils % 56.6 %; Platelet Count 188 10^3/uL (130-400); RBC 4.89 10^6/uL (4.36-5.78); RDW 12.5 % (11.8-14.1); RDW-SD 40.4 fL; WBC 6.82 10^3/uL (4.4-10.8)
[2024-02-20 15:28] LABS: Anion Gap 10.8 mmol/L (3-11); BUN 26 mg/dL (7-18); CO2 25.2 mmol/L (21.0-32.0); CREATININE 1.1 mg/dL (0.70-1.30); Calcium 8.8 mg/dL (8.5-10.1); Chloride 104 mmol/L (98-107); Estimated GFR 75.43 (mL/min/1.73m2); Glucose 119 mg/dL (74-106); Magnesium 2.2 mg/dL (1.8-2.4); Potassium 4.2 mmol/L (3.5-5.1); Sodium 140 mmol/L (136-145)
== END 2024-02-20 12:57 | disposition home or self-care (01) ==
LOC: NCHCN 12:56
PROVIDERS: PCP Family Medicine; Visit Provider Student in an Organized Health Care Education/Training Program
DX: I25.2 Old myocardial infarction (principal)
CPT/HCPCS: 80048; 83735; 85025

== ENCOUNTER 2024-02-24 10:01 | Outpatient (CLI) | payer BC, SELFPAY ==
--- NOTE | 2024-02-24 10:00 | RT.EKG_ITS ---
APPROVED REPORT Exam: Resting ECG Reason for Exam: CAD Patient Location: O HR:57 bpm ECG Measurements Heart Rate 57 AXIS NM 196 P 39 QRSd 127 QRS 36 QT 438 T 48 QTc 427 Conclusion Sinus rhythm...normal P axis, V-rate 50- 99 LVH IVCD, consider atypical RBBB...QRSd>120mS, terminal axis(90,270)
== END 2024-02-24 10:02 | disposition home or self-care (01) ==
LOC: DI.CARD 10:02
PROVIDERS: PCP Family Medicine; Visit Provider Internal Medicine Cardiovascular Disease
DX: I24.9 Acute ischemic heart disease, unspecified (principal)
CPT/HCPCS: 93010

== ENCOUNTER 2024-06-23 08:14 | Outpatient (CLI) | payer BC, SELFPAY ==
--- NOTE | 2024-06-23 08:00 | RT.EKG_ITS ---
APPROVED REPORT Exam: Resting ECG Reason for Exam: ASCVD Patient Location: O HR:57 bpm ECG Measurements Heart Rate 57 AXIS FL 204 P 46 QRSd 134 QRS 41 QT 443 T 74 QTc 432 Conclusion Sinus rhythm...normal P axis, V-rate 50- 99 Probable left atrial enlargement...P >50mS, <-0.10mV V1 Right bundle branch block...QRSd>120, terminal axis(90,270)
== END 2024-06-23 08:15 | disposition home or self-care (01) ==
LOC: DI.CARD 08:14
PROVIDERS: PCP Student in an Organized Health Care Education/Training Program; Visit Provider Internal Medicine Cardiovascular Disease
DX: I25.10 Atherosclerotic heart disease of native coronary artery without angina pectoris
CPT/HCPCS: 93010

== ENCOUNTER 2024-07-20 00:41 | Outpatient (CLI) | payer BC, SELFPAY ==
--- NOTE | 2024-07-20 06:00 | ETT_ITS ---
APPROVED REPORT Exam: Exercise Treadmill Patient Location: Out-Patient Room/Bed: Stress Nurse: Eliz Quinones RN Ordering Provider:JAIRO HOOKER, Contact Number: BMI: 31.59 Baseline Rhythm: Sinus Bradycardia Comment: Occasional PVC's Indications: Ateriosclerotic cardiovascular disease , Medical History Medical History: Aortic regurgitation, CAD, ventricular septal defect (genetic), HLD, HTN, NSTEMI (), positive stress test, heart murmur, oscillopsia, ascending aorta dilation, pulmonary valve steno sis, GERD Cardiac Medications: Pantoprazole, amlodipine, aspirin, atorvastatin, clopidogrel, metoprolol succina te Allergies: NKA Cardiac Risk Factors: Family hx, HTN, HLD,CVD Previous Cardiac Procedures: 2 stents to LAD, VSD closure Pretest Chest Pain Characteristics: None Exercise History: Physically active Physical Disabilities: None Lung Sounds: Clear to auscultation Heart Sounds: Regular, Murmur Stress Test Details Test: Exercise stress testing was performed using a Ji protocol. Rest Stress HR Resting HR Supine: 53 bpm Max Heart Rate (APMHR): 157 bpm Resting HR Standin bpm Target HR (85% APMHR): 133 bpm Max HR Achieved: 136 bpm % of APMHR: 87 Recovery HR: 73 bpm HR response to stress: Normal HR response to stress BP Resting BP Supine: 142/60 mmHg Resting BP Standin/70 mmHg Max BP: 196/80 mmHg Recovery BP: 118/70 mmHg BP response to stress: Normal blood pressure response to stress. ECG Resting ECG: Sinus Bradycardia Ectopy: Occasional PVC's Stress ECG: Sinus Tachycardia ST Change: Downsloping ST depression, Horizontal ST depression Lead(s): Diffuse Stage: 1-[address] Deviation: 1-4 mm Arrhythmia: Frequent PVC's, couplets, bigeminy Recovery ECG: Sinus Rhythm Recovery ST Change: Downsloping ST depression, Horizontal ST depression Lead(s): Diffuse Recovery ST Deviation: 1-4 mm Recovery Arrhythmia: Frequent PVC's, couplets, bigeminy Comment: ST depressions under 1mm at test end. Recovery EKG sent to Dr. Hooker and ok to end test. Clinical Reason for Termination: Target HR Achieved, ST depressions Stress Symptoms: None Exercise duration: 09 min07 sec Highest Stage Reached: Stage 4: 4.2 mph at 16% grade. Exercise capacity: 10.35 METs Angina Score: None Rate Pressure Product: [id number] Stress ECG Conclusion 1. Resting electrocardiogram showed left ventricular hypertrophy with minor repolarization abnormalit ies 2. Patient exercised on the Ji protocol and completed workload of 10.35 METS without any symptoms suggestive of angina 3. Normal heart rate and blood pressure response to exercise. The patient achieved 87% of maximal pr edicted heart rate for age 4. The electrocardiographic portion of the test was nondiagnostic due to resting ST-T abnormalities 5. Sporadic PVCs were seen Stress Test Summary STAGE Time (mins) Speed (mph) Grade (%) HR BP SpO2 SYMPTOMS METS Supine 53 142/60 94% Standing 66 138/70 1 3 1.7 10 104 152/70 4.5 2 6 2.5 12 118 178/88 7 3 9 3.4 14 133 196/80 10 4 12 4.2 16 135 13 1 min recovery 112 162/70 3 min recovery 81 142/68 6 min recovery 72 188/58 9 min recovery 71 118/70 12 min recovery 73 98% Patient noted to have 1-4mm downsloping and horizontal ST depression in diffuse leads as well as freq uent PVC's, couplets and bigeminy during exercise and recovery. Patient denied any symptoms throughou t entire test. ST depression noted to be retunring to basleine and recovery EKG sent to Dr. Hooker. Ok for patient to leave per Dr. Hooker. Patient left ambulatory in no apparrent distress.
== END 2024-07-20 01:01 ==
LOC: DI 00:41
PROVIDERS: PCP Student in an Organized Health Care Education/Training Program; Visit Provider Internal Medicine Cardiovascular Disease
DX: I25.10 Atherosclerotic heart disease of native coronary artery without angina pectoris (principal)
CPT/HCPCS: 93017

== ENCOUNTER 2025-01-22 17:01 | Outpatient (REF) | payer BC, SELFPAY ==
[2025-01-22 22:05] LABS: Calculated LDL 87 mg/dL (<100); Cholesterol 148 mg/dL (<200); HDL Cholesterol 43 mg/dL (>or=40); TSH 5.66 uIU/mL (0.36-3.74); Triglyceride 92 mg/dL (<150)
[2025-01-22 22:26] LABS: FREE T4 0.77 ng/dL (0.76-1.46)
== END 2025-01-22 17:02 | disposition home or self-care (01) ==
LOC: NCHCN 17:01
PROVIDERS: PCP Student in an Organized Health Care Education/Training Program; Visit Provider Student in an Organized Health Care Education/Training Program
DX: E78.5 Hyperlipidemia, unspecified (principal); E03.9 Hypothyroidism, unspecified
CPT/HCPCS: 80061; 84439; 84443